=== PATIENT | male | born 1995 | race Hispanic/Latino ===

== ENCOUNTER 2022-05-07 20:56 | Emergency (ER) | payer BC, SELFPAY ==
[2022-05-07 21:32] VITALS: BP 149/105; PULSE 94; RESP 18; TEMP 36.6; O2SAT 98
[2022-05-07 21:44] LABS: Basophils Absolute Auto 0.1 K/mm3 (0.0-0.1); Eosinophils Absolute Auto 0.2 K/mm3 (0-0.3); Eosinophils Percent Auto 2.6 % (0-4.4); Hematocrit 51.4 % (42.0-52.0); Hemoglobin 17.7 g/dL (14.0-18.0); Immature Granulocyte Absolute 0.03 K/mm3 (0.00-0.031); Immature Granulocyte Percent A 0.3 % (0-0.5); Lymphocytes Percent Auto 34.1 % (18.3-44.2); Mean Corpuscular HGB Conc 34.4 g/dl (32-36); Mean Corpuscular Hemoglobin 29.3 pg (26-34); Mean Corpuscular Volume 85.1 fl (80-100); Mean Platelet Volume 10.1 fl (7.4-10.4); Monocytes Absolute Auto 0.7 K/mm3 (0.1-0.6); Monocytes Percent Auto 7.6 % (2.6-8.5); Neutrophils Absolute Auto 4.8 K/mm3 (1.3-6.7); Neutrophils Percent Auto 54.4 % (45.5-73.1); Platelet Count Result 310 k/mm3 (150-375); Red Blood Count 6.04 M/mm3 (4.6-6.20); Red Cell Distribution Width 12.3 % (11.5-14.5); White Blood Count 8.8 K/mm3 (4.5-10.0)
[2022-05-07 21:51] LABS: Appearance Urine Clear (Clear); Bilirubin Urine Negative (Negative); Color Urine Yellow (Yellow); Glucose Urine UA Negative (Negative); Ketones Urine Trace mg/dL (Negative); Leukocyte Esterase Ur Negative LEU/UL (Negative); Nitrate Urine Negative (Negative); Protein Urine 2+ mg/dL (Negative); Specific Grav Ur >= 1.030 (1.001-1.035); Urobilinogen Urine 0.2 mg/dL (<2.0)
[2022-05-07 21:55] LABS: Mucus Urine Rare /lpf; RBC Urine 0-2 /hpf (0-2); WBC Urine 0-3 /hpf
[2022-05-07 21:56] LABS: Add Urine Microscopic? YES; Blood Urine Trace-Intact (Negative)
[2022-05-07 22:01] LABS: Alanine Aminotransferase 139 U/L (6-50); Albumin Level 4.9 g/dL (3.5-5.1); Alkaline Phosphatase 99 U/L (38-126); Anion Gap 14 mmol/L (8-16); Aspartate Amino Transferase 52 U/L (17-59); Bilirubin,Total 0.6 mg/dL (0.2-1.3); Blood Urea Nitrogen 24 mg/dL (9-20); Carbon Dioxide 25 mmol/L (22-30); Chloride 98 mmol/L (98-107); Estimated CRCL calculation 125 ml/min; Estimated Glomerular Filt Rate > 60; Glucose 106 mg/dL (65-110); Lipase 45 U/L (23-300); Potassium 3.8 mmol/L (3.4-5.0); Sodium 137 mmol/L (137-145)
--- NOTE | 2022-05-08 00:57 | ED.ABDPAIN ---
HPI - Abdominal Pain General Chief Complaint: Abdominal Pain Stated Complaint: abd pain Time Seen by Provider: 05/08/22 00:54 Source: patient Mode of arrival: ambulatory Limitations: no limitations History of Present Illness HPI narrative: The patient is a 26-year-old male presenting to the emergency department for evaluation of right upper quadrant abdominal pain. Patient reports a sharp burning pain in his right upper quadrant without radiation to the back or shoulder. He reports associated nausea without vomiting. He denies fever, chills, flank pain, lower abdominal pain, diarrhea or constipation. Patient states he was seen by his primary care provider last week and was noted to have elevated liver enzymes. At that point, he did not have right upper quadrant pain. He does not notice worsening of pain with eating. He reports that he does not take Tylenol nor does he drink alcohol on a regular basis. Patient denies history of abdominal surgery. He denies dysuria or hematuria. Patient states that he has felt generally unwell for the past 2 months. He reports fatigue without focal weakness or numbness. He denies headache, neck pain, chest pain, shortness of breath. He denies recent travel. Related Data Allergies Allergy/AdvReac Type Severity Reaction Status Date / Time No Known Allergies Allergy Verified 05/08/22 02:06 Review of Systems Review of Systems: CONSTITUTIONAL: Denies fever, chills, or sweats. CARDIOVASCULAR: Denies chest pain, palpitations, or edema. RESPIRATORY: Denies cough or dyspnea. GASTROINTESTINAL: Patient reports abdominal pain, denies nausea, vomiting or diarrhea GENITOURINARY: Denies dysuria or hematuria. SKIN: Denies rash or itching. MUSCULOSKELETAL: Denies back pain, joint pain, or myalgia. NEUROLOGIC: Denies headache, numbness, or weakness. [facility] Social History Social History (Updated 05/08/22 @ 01:20 by Bernice Barbosa MD) Smoking status: Never smoker Alcohol intake: current Alcohol use details: Rare, social Substance use: never Living arrangements: with family Gender identity (if verbalized by the patient): Male Exam Narrative: GENERAL: Awake, alert, conversant HEAD: Normocephalic, atraumatic. EYES: PERRLA and EOMI. ENT: Nares clear, no rhinorrhea or epistaxis. Mucous membranes moist. NECK: Supple. CHEST: No respiratory distress, breathing even and non labored HEART: Regular rate, sinus rhythm ABDOMEN:Non distended, positive right upper quadrant tenderness, positive Fernando sign, no rebound, rigidity, positive guarding in the right upper quadrant, no flank tenderness bilaterally EXTREMITIES: Normal range of motion. No edema. SKIN: Warm, dry, no rash. NEURO:No focal deficits. Alert and oriented x3 Course Vital Signs Vital signs: Vital Signs Temperature 36.6 C 05/07/22 21:32 Pulse Rate 94 05/07/22 21:32 Respiratory Rate 18 05/07/22 21:32 Blood Pressure 149/105 H 05/07/22 21:32 Pulse Oximetry 98 05/07/22 21:32 Oxygen Delivery Room Air 05/07/22 21:32 Temperature 36.6 C 05/07/22 21:32 Pulse Rate 94 05/07/22 21:32 Respiratory Rate 18 05/07/22 21:32 Blood Pressure 149/105 H 05/07/22 21:32 Pulse Oximetry 98 05/07/22 21:32 Oxygen Delivery Room Air 05/07/22 21:32 MDM - Abdominal Pain MDM Narrative Medical decision making narrative: Patient presented for evaluation of right upper quadrant abdominal pain which is reproducible on exam. Patient with stable vital signs, laboratory results are reassuring. He does have an elevation in ALT which sounds chronic based on his recent primary care physician visit. Patient has a ultrasound ordered for him through this radiology department, and I did offer to obtain a CT abdomen/pelvis tonight because we do not have ultrasound in-house to evaluate for cholecystitis. Clinically, given no leukocytosis, no hyperbilirubinemia, no elevation in AST, no elevation in lipase, significant infection see
--- NOTE | 2022-05-08 01:52 | PC.NURSE ---
This RN went into room to check in pt. Pt states he wants to leave, and will just followup with his doctor. RN notified Dr. Barbosa who is going to speak with patient
[2022-05-08 02:00] VITALS: BP 144/89; PULSE 93; RESP 18; O2SAT 100
== END 2022-05-08 02:43 | disposition home or self-care (01) ==
PROVIDERS: Emergency Provider Emergency Medicine; PCP Physician Assistant
DX: R10.11 Right upper quadrant pain (principal)
CPT/HCPCS: 36415; 80053; 81001; 83690; 85025; 99283

== ENCOUNTER 2022-05-08 15:58 | Outpatient (CLI) | payer BC, SELFPAY ==
--- NOTE | ~2022-05-08 | XR_ITS ---
EXAM: XR shoulder RT min 2V DATE: 05/08/2022 17:01 HISTORY: INJURY 1 1/2 YEARS AGO PAIN ANTERIOR DOWN BICEP . COMPARISON: None available. FINDINGS: Normal mineralization. No fracture or dislocation. No lytic or blastic lesion. Joint space s are maintained. No erosion or periosteal change. Soft tissues within normal limits. IMPRESSION: Normal right shoulder radiograph findings. Reviewed, dictated and finalized at location K.
== END 2022-05-08 15:59 | disposition home or self-care (01) ==
PROVIDERS: PCP Physician Assistant; Visit Provider Physician Assistant
DX: S49.91XA Unspecified injury of right shoulder and upper arm, initial encounter (principal)
CPT/HCPCS: 73030

== ENCOUNTER → 2022-05-11 08:04 | Outpatient (CLI) | payer BC, SELFPAY ==
--- NOTE | ~2022-05-11 | US_ITS ---
EXAMINATION: US abdomen limited DATE: 05/11/2022 09:21 INDICATION: Elevated liver enzymes TECHNIQUE: Multiple grayscale and Doppler ultrasound images of limited portions of the abdomen were o btained. COMPARISON: None available. FINDINGS: The visualized portions of the pancreas are normal. Echogenic liver parenchyma. No surface nodularity. Normal hepatopetal flow in the main portal vein. The gallbladder is normal with no abnorm al wall thickening, pericholecystic fluid or stones. The common bile duct measures 3 mm. There was no sonographic Fernando sign. IMPRESSION: Echogenic liver, most commonly due to steatosis but also can be seen with hepatitis and fibrosis.. Reviewed, dictated and finalized at location K. IMPRESSION: Echogenic liver, most commonly due to steatosis but also can be seen with hepat itis and fibrosis..
== END ==
PROVIDERS: PCP Physician Assistant; Visit Provider Physician Assistant
DX: R74.01 Elevation of levels of liver transaminase levels (principal)
CPT/HCPCS: 76705